=== PATIENT | female | born 1945 | race Caucasian/White ===

== ENCOUNTER 2017-03-17 17:19 | Outpatient (CLI) | payer MEDICARE, MEDICAID ==
[2017-03-17 17:58] LABS: Bilirubin Negative (Negative); Clarity Cloudy (Clear); Glucose, Urine (Dipstick) Negative (Negative); Leukocyte Negative (Negative); Nitrite Positive (Negative); Protein, Urine (Dipstick) Trace mg/dL (Neg-Trace); Specific Gravity, Urine 1.025 (1.005-1.030); Urobilinogen 0.2 mg/dL (0.2-1.0); pH, Urine 5.5 (5.0-9.0)
[2017-03-17 17:59] LABS: Blood, Urine Negative (Negative)
[2017-03-17 18:00] LABS: RBC/HPF 0-3 HPF (0-3)
[2017-03-17 18:01] LABS: Bacteria/HPF 4+ HPF (None Seen); Crystals/HPF 1+ AMORPH URATES HPF (Negative)
== END 2017-03-17 17:20 | disposition home or self-care (01) ==
LOC: MADLAB 17:19
PROVIDERS: ATTEND Family Medicine
DX: N39.9 Disorder of urinary system, unspecified (principal)
CPT/HCPCS: 81001; 87077; 87086; 87186

== ENCOUNTER 2017-04-14 17:35 | Outpatient (CLI) | payer MEDICARE, MEDICAID ==
[2017-04-14 17:49] LABS: Clarity Cloudy (Clear); Specific Gravity, Urine 1.025 (1.005-1.030)
[2017-04-14 17:50] LABS: Bilirubin Negative (Negative); Blood, Urine Negative (Negative); Glucose, Urine (Dipstick) Negative (Negative); Leukocyte Trace (Negative); Nitrite Negative (Negative); Protein, Urine (Dipstick) Trace mg/dL (Neg-Trace); Urobilinogen 0.2 mg/dL (0.2-1.0); pH, Urine 5.5 (5.0-9.0)
[2017-04-14 17:53] LABS: Bacteria/HPF 4+ HPF (None Seen); RBC/HPF 0-3 HPF (0-3)
== END 2017-04-14 17:36 | disposition home or self-care (01) ==
LOC: MADLAB 17:35
PROVIDERS: ATTEND Family Medicine
DX: N39.0 Urinary tract infection, site not specified (principal)
CPT/HCPCS: 81001; 87077; 87086; 87186

== ENCOUNTER 2017-06-09 14:47 | Outpatient (CLI) | payer MEDICARE, MEDICAID ==
[2017-06-09 15:25] LABS: Clarity Hazy (Clear)
[2017-06-09 15:26] LABS: Bacteria/HPF Rare-Few HPF (None Seen); Bilirubin Negative (Negative); Blood, Urine Trace (Negative); Glucose, Urine (Dipstick) 100 mg/dL (Negative); Leukocyte Negative (Negative); Nitrite Negative (Negative); Protein, Urine (Dipstick) > or equal to 300 mg/dL (Neg-Trace); RBC/HPF 0-3 HPF (0-3); Urobilinogen 0.2 mg/dL (0.2-1.0); WBC/HPF 0-3 HPF (0-3); pH, Urine 6.5 (5.0-9.0)
== END 2017-06-09 14:48 | disposition home or self-care (01) ==
LOC: MADLAB 14:47
PROVIDERS: ATTEND Family Medicine
DX: E11.22 Type 2 diabetes mellitus with diabetic chronic kidney disease (principal); N18.9 Chronic kidney disease, unspecified; N39.0 Urinary tract infection, site not specified
CPT/HCPCS: 36415; 81001

== ENCOUNTER 2017-06-30 17:32 | Outpatient (CLI) | payer MEDICARE, MEDICAID ==
[2017-06-30 18:05] LABS: Clarity Hazy (Clear); Glucose, Urine (Dipstick) Negative (Negative); Leukocyte Negative (Negative); Nitrite Negative (Negative); Protein, Urine (Dipstick) Trace mg/dL (Neg-Trace); Specific Gravity, Urine 1.025 (1.005-1.030); Urobilinogen 0.2 mg/dL (0.2-1.0)
[2017-06-30 18:06] LABS: Bacteria/HPF Rare-Few HPF (None Seen); Bilirubin Negative (Negative); Blood, Urine Negative (Negative); Crystals/HPF RARE URIC ACID HPF (Negative); Icto Negative (Negative); RBC/HPF None Seen HPF (0-3); WBC/HPF 0-3 HPF (0-3)
== END 2017-06-30 17:33 | disposition home or self-care (01) ==
LOC: MADLAB 17:32
PROVIDERS: ATTEND Family Medicine
DX: E11.22 Type 2 diabetes mellitus with diabetic chronic kidney disease (principal); N18.9 Chronic kidney disease, unspecified; N39.0 Urinary tract infection, site not specified
CPT/HCPCS: 81001

== ENCOUNTER 2018-02-03 12:46 | Outpatient (CLI) | payer MEDICARE, MEDICAID ==
[2018-02-03 13:12] LABS: ALT (SGPT) 15 U/L (8-55); AST (SGOT) 14 U/L (5-34); Alkaline Phosphatase 99 U/L (40-150); Anion Gap 16 mmol/L (10-20); BUN (Urea Nitrogen) 22 mg/dL (9.8-20.1); Bilirubin, Total 1.2 mg/dL (0.2-1.2); Calc. Creatinine Clearance 0 mL/min (70-130); Calcium 9.3 mg/dL (7.8-10.44); Carbon Dioxide 24 mmol/L (23-31); Cardiac Risk 2.6 (Less than 4.5); Chloride 104 mmol/L (98-107); Cholesterol 118 mg/dl (< 200 Desired); Estimated GFR-MDRD 60; Globulin 3.1 g/dL (2.4-3.5); Glucose 126 mg/dL (83-110); HDL Cholesterol 45 mg/dL (>60 Neg Risk); LDL Cholesterol, Calculated 55 mg/dL; Potassium 4.5 mmol/L (3.5-5.1); Protein, Total 7.1 g/dL (6.0-8.3); Sodium 139 mmol/L (136-145); Triglycerides 92 mg/dL (Less than 150)
[2018-02-03 13:21] LABS: #Basophils 0.1 thou/uL (0.0-0.2); #Eosinphils 0.2 thou/uL (0.0-0.7); #Lymphocytes 1.5 thou/uL (1.20-3.40); #Monocytes 0.5 thou/uL (0.11-0.59); #Neutrophils 4.3 thou/uL (1.40-6.50); %Basophils 1.3 % (0.0-1.0); %Eosinophils 3.6 % (0.0-10.0); %Lymphocytes 22.7 % (21.0-51.0); %Monocytes 7.3 % (0.0-10.0); Hemoglobin 13.9 g/dL (12.0-16.0); Mean Corpuscular HGB CONC 33.6 g/dL (32.0-36.0); Mean Corpuscular Hemoglobin 29.9 pg (27.0-31.0); Mean Corpuscular Volume 89.1 fl (81.0-99.0); Mean Platelet Volume 8.6 fL (7.4-10.4); Platelet Count 218 thou/uL (130-400); RBC Distribution Width 12.4 % (11.5-14.5); Red Blood Cell (RBC) Count 4.64 mill/uL (4.20-5.40); White Blood Cell (WBC) Count 6.7 thou/uL (4.8-10.8)
== END 2018-02-03 12:47 | disposition home or self-care (01) ==
LOC: MADLAB 12:46
PROVIDERS: ATTEND Family Medicine
DX: E11.22 Type 2 diabetes mellitus with diabetic chronic kidney disease (principal); E11.65 Type 2 diabetes mellitus with hyperglycemia; N18.3 Chronic kidney disease, stage 3 (moderate); I25.10 Atherosclerotic heart disease of native coronary artery without angina pectoris; E78.6 Lipoprotein deficiency
CPT/HCPCS: 80053; 80061; 83036; 84443; 85025

== ENCOUNTER 2018-02-21 18:49 | Outpatient (CLI) | payer MEDICARE, MEDICAID ==
[2018-02-22 13:55] LABS: Creatinine, Urine 85.78 mg/dL (47-110); Microalbumin Urine Less than 5.0 mg/dL (0.5-50.0)
[2018-02-22 22:21] LABS: Follow-up Chemistry Comp? YES; Follow-up Result - Chemistry REPORT FAXED
== END 2018-02-21 18:50 | disposition home or self-care (01) ==
LOC: MADLAB 18:49
PROVIDERS: ATTEND Family Medicine
DX: E11.65 Type 2 diabetes mellitus with hyperglycemia (principal)
CPT/HCPCS: 82043